=== PATIENT | female | born 1930 | race Caucasian/White ===

== ENCOUNTER 2016-10-19 14:04 | Inpatient (IN) | payer MEDICARE, BC ==
[~2016-10-19 14:04] MED LIST: AMARYL1 M1 PO; AMARYL1 MG PO; ASPIR 8181 MG PO; ASPIRIN EC81 MG PO; ASPIRIN81 MG; ATENOLOL50 MG; BISACODYL10 MG RC; CO Q-1030 MG; COMBIVENT RESPIM4 G1 INH; CRESTOR10 MG; CRESTOR20 MG; CRESTOR40 MG PO; CRESTOR40 MG/TAB PO; DEEP SEA45 M1; DIFLUCAN200 MG; EFFEXOR XR150 M1 PO; EFFEXOR XR150 MG; ELIQUIS2.5 M1 PO; FEROSUL325 M1 PO; FERROUS SU325 ( 65 ); FERROUS SULFAT134 M1; FUROSEMIDE20 MG PO; FUROSEMIDE40 M1 PO; FUROSEMIDE40 MG; GABAPENTIN300 M1 PO; GLIMEPIRIDE1 MG PO; GLUCOPHAGE500 MG; GUAIFENESIN ER600 MG PO; HUMALOG100 U/ML SC; IRON325 M1 PO; ISOSORBIDE MONO30 M4 PO; K-DUR10 ME1 PO; K-TAB ER20 ME1 PO; LASIX20 M1 PO; LASIX40 M1 PO; LASIX40 MG; LASIX80 M1 PO; LEVAQUIN500 M1 PO; LEVAQUIN750 M1 PO; LISINOPRIL10 MG; LOSARTAN POTASS50 MG PO; MAGIC MOUTHWASH; MAPAP325 MG PO; MILK OF MAGNESIA PO; MUCINEX1200 MG PO; NAPROSYN250 MG PO; NEURONTIN300 MG PO; NITROFURANTOIN50 MG; NITROQUICK0.4 MG; NORCO 5/3251 TAB PO; NORVASC5 M2 PO; PAIN RELIEVER325 M2 PO; POTASSIUM CHLO10 ME2 PO; POTASSIUM CHLO20 MEQ; PRAVACHOL40 M1 PO; PREDNISONE10 M1 PO; PREDNISONE10 M2 PO; PREVACID30 M1 PO; PREVACID30 M2 PO; PRILOSEC20 MG; PRILOSEC40 MG; TOPROL XL100 M1 PO; TOPROL XL100 MG PO; VENLAFAXINE HC150 MG PO; VENTOLIN HFA18 GM INH; VITAMIN D-1000 UNIT1 PO; VITAMIN D35000 UNI2 PO; albuterol mdi
[2016-10-19] MEDS ORDERED: LIPITOR40 M1 PO (14:24)
[2016-10-19] MEDS ORDERED: DEMADEX20 M1 PO (14:25)
[2016-10-19 15:02] LABS: BASO % 0.5 % (0-2); EOSINOPHIL ABSOLUTE COUNT 0.2 tho/cmm (0.0-0.7); HCT-HEMATOCRIT 33.4 % (34.0-49.0); HGB-HEMOGLOBIN 10.4 gm/dl (12.0-15.5); IMMATURE GRANULOCYTES ABSOLUTE 0.02 tho/cmm (0-0.03); IMMATURE GRANULOCYTES PERCENT 0.3 % (0-0.3); LYMPH % 12.5 % (20-45); LYMPH ABSOLUTE COUNT 0.8 tho/cmm (0.8-4.5); MCH (MEAN CORPUSCULAR HGB) 30.2 pg (28.0-32.0); MCHC MEAN CORPUSCULAR HGB CONC 31.1 % (32.0-36.0); MCV (MEAN CELL VOLUME) 97.1 fl (82.0-96.0); MEAN PLATELET VOLUME 9.7 cmc (9.4-12.4); MONO % 5.3 % (0-12); MONOCYTE ABSOLUTE COUNT 0.3 tho/cmm (0.0-1.2); NEUTROPHIL ABSOLUTE COUNT 4.7 tho/cmm (1.6-8.0); NEUTROPHIL-AUTOMATED 4.7 tho/cmm (1.6-8.0); NEUTROPHILS % 78.4 % (40-80); PLATELET COUNT 184 tho/cmm (150-450); RED BLOOD COUNT 3.44 mil/cmm (4.00-5.20); RED CELL DISTRIBUTION WIDTH 15.6 % (12.4-16.4)
[2016-10-19] MEDS ORDERED: AMARYL1 M1 PO (15:02)
[2016-10-19 15:18] LABS: ANION GAP 12 mmol/L (0-20); BLOOD UREA NITROGEN 69 mg/dl (6-24); CALCIUM 9.1 mg/dl (8.5-10.5); CARBON DIOXIDE-VENOUS 28 mmol/L (22-32); CHLORIDE 105 mmol/l (96-110); CREATININE 2.64 mg/dl (0.50-1.10); GLUCOSE 211 mg/dL (70-110); POTASSIUM 4.1 mmol/L (3.7-5.1); SODIUM 141 mmol/L (135-145); eGFR VALUE FOR BLACK 19 mL/Min
[2016-10-19 19:23] LABS: ALB/GLOB RATIO 0.8 (0.8-2.0); ALBUMIN 3.3 g/dl (3.5-5.0); ALKALINE PHOSPHATASE 157 U/L (33-138); ALT/SGPT 44 U/L (12-78); ANION GAP 14 mmol/L (0-20); AST/SGOT 35 U/L (10-40); BILIRUBIN,TOTAL 0.6 mg/dl (0-1.5); BLOOD UREA NITROGEN 67 mg/dl (6-24); CALCIUM 8.9 mg/dl (8.5-10.5); CARBON DIOXIDE-VENOUS 26 mmol/L (22-32); CHLORIDE 104 mmol/l (96-110); CREATININE 2.65 mg/dl (0.50-1.10); GLUCOSE 212 mg/dL (70-110); MAGNESIUM 2.5 mg/dl (1.3-2.6); SODIUM 140 mmol/L (135-145); eGFR VALUE FOR BLACK 18 mL/Min
[2016-10-20 05:43] LABS: ANION GAP 11 mmol/L (0-20); BLOOD UREA NITROGEN 68 mg/dl (6-24); CARBON DIOXIDE-VENOUS 30 mmol/L (22-32); CHLORIDE 107 mmol/l (96-110); GLUCOSE 166 mg/dL (70-110); POTASSIUM 3.9 mmol/L (3.7-5.1); SODIUM 144 mmol/L (135-145); eGFR VALUE FOR BLACK 19 mL/Min
[2016-10-21 04:24] LABS: ANION GAP 10 mmol/L (0-20); BLOOD UREA NITROGEN 63 mg/dl (6-24); CALCIUM 8.7 mg/dl (8.5-10.5); CARBON DIOXIDE-VENOUS 32 mmol/L (22-32); CHLORIDE 106 mmol/l (96-110); CREATININE 2.27 mg/dl (0.50-1.10); GLUCOSE 128 mg/dL (70-110); POTASSIUM 3.8 mmol/L (3.7-5.1); SODIUM 144 mmol/L (135-145); eGFR VALUE FOR BLACK 22 mL/Min
[2016-10-21 17:08] LABS: PROCALCITONIN 0.14 ng/ml (0.05-0.09)
[2016-10-22 05:38] LABS: BLOOD UREA NITROGEN 66 mg/dl (6-24); CALCIUM 8.9 mg/dl (8.5-10.5); CARBON DIOXIDE-VENOUS 28 mmol/L (22-32); CHLORIDE 99 mmol/l (96-110); CREATININE 2.56 mg/dl (0.50-1.10); SODIUM 138 mmol/L (135-145); eGFR VALUE FOR BLACK 19 mL/Min
[2016-10-22 05:41] LABS: ANION GAP 16 mmol/L (0-20); GLUCOSE 367 mg/dL (70-110); POTASSIUM 4.7 mmol/L (3.7-5.1)
[2016-10-23 06:11] LABS: BLOOD UREA NITROGEN 86 mg/dl (6-24); CARBON DIOXIDE-VENOUS 30 mmol/L (22-32); CHLORIDE 98 mmol/l (96-110); GLUCOSE 379 mg/dL (70-110); SODIUM 136 mmol/L (135-145); eGFR VALUE FOR BLACK 14 mL/Min
[2016-10-23 06:15] LABS: ANION GAP 14 mmol/L (0-20); CREATININE 3.24 mg/dl (0.50-1.10); POTASSIUM 5.6 mmol/L (3.7-5.1)
[2016-10-24 06:55] LABS: BLOOD UREA NITROGEN 100 mg/dl (6-24); CARBON DIOXIDE-VENOUS 29 mmol/L (22-32); CREATININE 3.06 mg/dl (0.50-1.10); GLUCOSE 362 mg/dL (70-110); eGFR VALUE FOR BLACK 15 mL/Min
[2016-10-24 07:10] LABS: ANION GAP 14 mmol/L (0-20); CHLORIDE 98 mmol/l (96-110); SODIUM 135 mmol/L (135-145)
[2016-10-24 13:56] LABS: PHOSPHOROUS 3.4 mg/dl (2.5-4.9)
[2016-10-24 13:57] LABS: MAGNESIUM 2.4 mg/dl (1.3-2.6)
[2016-10-24 17:01] LABS: KETONE-BETA (WHOLE BLOOD) <0.1 mmol/L (0.0-0.6)
[2016-10-24 17:17] LABS: BLOOD UREA NITROGEN 102 mg/dl (6-24); CALCIUM 9.3 mg/dl (8.5-10.5); CARBON DIOXIDE-VENOUS 28 mmol/L (22-32); CHLORIDE 101 mmol/l (96-110); CREATININE 3.03 mg/dl (0.50-1.10); SODIUM 139 mmol/L (135-145); eGFR VALUE FOR BLACK 16 mL/Min
[2016-10-24 17:20] LABS: ANION GAP 14 mmol/L (0-20); GLUCOSE 176 mg/dL (70-110); POTASSIUM 4.3 mmol/L (3.7-5.1)
[2016-10-24 20:58] LABS: ANION GAP 12 mmol/L (0-20); BLOOD UREA NITROGEN 100 mg/dl (6-24); CARBON DIOXIDE-VENOUS 30 mmol/L (22-32); CHLORIDE 101 mmol/l (96-110); CREATININE 2.94 mg/dl (0.50-1.10); GLUCOSE 125 mg/dL (70-110); POTASSIUM 4.3 mmol/L (3.7-5.1); SODIUM 139 mmol/L (135-145); eGFR VALUE FOR BLACK 16 mL/Min
[2016-10-24 23:40] LABS: URINE BILIRUBIN NEGATIVE (NEG); URINE BLOOD NEGATIVE (NEG); URINE GLUCOSE (UA) NEGATIVE (NEG); URINE KETONE NEGATIVE (NEG); URINE LEUKOCYTE ESTERASE NEGATIVE (NEG); URINE NITRITE NEGATIVE (NEG); URINE PROTEIN SMALL (NEG)
[2016-10-24 23:54] LABS: URINE APPEARANCE CLEAR; URINE COLOR YELLOW
[2016-10-24 23:55] LABS: URINE EPITHELIAL CELLS 0-6 /[HPF] (0-10); URINE RBC 0-1 /[HPF] (0-5)
[2016-10-25 01:15] LABS: ANION GAP 11 mmol/L (0-20); BLOOD UREA NITROGEN 101 mg/dl (6-24); CARBON DIOXIDE-VENOUS 32 mmol/L (22-32); CHLORIDE 101 mmol/l (96-110); CREATININE 2.86 mg/dl (0.50-1.10); SODIUM 140 mmol/L (135-145); eGFR VALUE FOR BLACK 17 mL/Min
[2016-10-25 01:16] LABS: GLUCOSE 68 mg/dL (70-110)
[2016-10-25 01:22] LABS: MAGNESIUM 2.3 mg/dl (1.3-2.6); PHOSPHOROUS 4.2 mg/dl (2.5-4.9)
[2016-10-25 04:30] LABS: BASO % 0.1 % (0-2); HCT-HEMATOCRIT 31.6 % (34.0-49.0); HGB-HEMOGLOBIN 9.8 gm/dl (12.0-15.5); IMMATURE GRANULOCYTES ABSOLUTE 0.08 tho/cmm (0-0.03); IMMATURE GRANULOCYTES PERCENT 0.8 % (0-0.3); LYMPH ABSOLUTE COUNT 1.1 tho/cmm (0.8-4.5); MCH (MEAN CORPUSCULAR HGB) 30.1 pg (28.0-32.0); MCV (MEAN CELL VOLUME) 96.9 fl (82.0-96.0); MEAN PLATELET VOLUME 9.9 cmc (9.4-12.4); MONO % 8.5 % (0-12); MONOCYTE ABSOLUTE COUNT 0.8 tho/cmm (0.0-1.2); NEUTROPHIL ABSOLUTE COUNT 7.7 tho/cmm (1.6-8.0); NEUTROPHIL-AUTOMATED 7.7 tho/cmm (1.6-8.0); NEUTROPHILS % 79.6 % (40-80); PLATELET COUNT 222 tho/cmm (150-450); RED BLOOD COUNT 3.26 mil/cmm (4.00-5.20); RED CELL DISTRIBUTION WIDTH 16.6 % (12.4-16.4); WHITE BLOOD COUNT 9.6 tho/cmm (4.0-10.0)
[2016-10-25 04:37] LABS: ALBUMIN 3.1 g/dl (3.5-5.0); ANION GAP 13 mmol/L (0-20); BLOOD UREA NITROGEN 100 mg/dl (6-24); CARBON DIOXIDE-VENOUS 32 mmol/L (22-32); CHLORIDE 100 mmol/l (96-110); CREATININE 2.91 mg/dl (0.50-1.10); PHOSPHOROUS 5.1 mg/dl (2.5-4.9); POTASSIUM 4.5 mmol/L (3.7-5.1); SODIUM 140 mmol/L (135-145); eGFR VALUE FOR BLACK 16 mL/Min
[2016-10-25 04:43] LABS: GLUCOSE 142 mg/dL (70-110)
[2016-10-26 06:18] LABS: BASO % 0.1 % (0-2); EOS % 1.3 % (0-7); EOSINOPHIL ABSOLUTE COUNT 0.1 tho/cmm (0.0-0.7); HCT-HEMATOCRIT 32.1 % (34.0-49.0); HGB-HEMOGLOBIN 9.9 gm/dl (12.0-15.5); IMMATURE GRANULOCYTES PERCENT 1.3 % (0-0.3); LYMPH % 15.9 % (20-45); LYMPH ABSOLUTE COUNT 1.2 tho/cmm (0.8-4.5); MCH (MEAN CORPUSCULAR HGB) 30.1 pg (28.0-32.0); MCHC MEAN CORPUSCULAR HGB CONC 30.8 % (32.0-36.0); MCV (MEAN CELL VOLUME) 97.6 fl (82.0-96.0); MEAN PLATELET VOLUME 10.1 cmc (9.4-12.4); MONO % 8.2 % (0-12); MONOCYTE ABSOLUTE COUNT 0.6 tho/cmm (0.0-1.2); NEUTROPHIL ABSOLUTE COUNT 5.7 tho/cmm (1.6-8.0); NEUTROPHIL-AUTOMATED 5.7 tho/cmm (1.6-8.0); NEUTROPHILS % 73.2 % (40-80); PLATELET COUNT 204 tho/cmm (150-450); RED BLOOD COUNT 3.29 mil/cmm (4.00-5.20); RED CELL DISTRIBUTION WIDTH 16.3 % (12.4-16.4); WHITE BLOOD COUNT 7.8 tho/cmm (4.0-10.0)
[2016-10-26 06:23] LABS: ALBUMIN 3.1 g/dl (3.5-5.0); ANION GAP 10 mmol/L (0-20); BLOOD UREA NITROGEN 81 mg/dl (6-24); CALCIUM 8.7 mg/dl (8.5-10.5); CARBON DIOXIDE-VENOUS 33 mmol/L (22-32); CHLORIDE 101 mmol/l (96-110); CREATININE 2.38 mg/dl (0.50-1.10); GLUCOSE 136 mg/dL (70-110); PHOSPHOROUS 4.8 mg/dl (2.5-4.9); POTASSIUM 4.1 mmol/L (3.7-5.1); SODIUM 140 mmol/L (135-145); eGFR VALUE FOR BLACK 21 mL/Min
[2016-10-27 07:35] LABS: HCT-HEMATOCRIT 34.9 % (34.0-49.0); HGB-HEMOGLOBIN 10.4 gm/dl (12.0-15.5); MCV (MEAN CELL VOLUME) 100.3 fl (82.0-96.0); RED CELL DISTRIBUTION WIDTH 16.3 % (12.4-16.4)
[2016-10-27 07:49] LABS: ANION GAP 9 mmol/L (0-20); BLOOD UREA NITROGEN 75 mg/dl (6-24); CALCIUM 9.1 mg/dl (8.5-10.5); CARBON DIOXIDE-VENOUS 32 mmol/L (22-32); CHLORIDE 105 mmol/l (96-110); CREATININE 2.33 mg/dl (0.50-1.10); GLUCOSE 117 mg/dL (70-110); SODIUM 142 mmol/L (135-145); eGFR VALUE FOR BLACK 22 mL/Min
[2016-10-28 03:53] LABS: HCT-HEMATOCRIT 35.1 % (34.0-49.0); HGB-HEMOGLOBIN 10.6 gm/dl (12.0-15.5); MCV (MEAN CELL VOLUME) 99.4 fl (82.0-96.0); RED CELL DISTRIBUTION WIDTH 16.2 % (12.4-16.4)
[2016-10-28 03:59] LABS: ANION GAP 10 mmol/L (0-20); BLOOD UREA NITROGEN 76 mg/dl (6-24); CARBON DIOXIDE-VENOUS 31 mmol/L (22-32); CHLORIDE 104 mmol/l (96-110); CREATININE 2.56 mg/dl (0.50-1.10); GLUCOSE 166 mg/dL (70-110); POTASSIUM 4.1 mmol/L (3.7-5.1); SODIUM 141 mmol/L (135-145); eGFR VALUE FOR BLACK 19 mL/Min
[2016-10-28] MEDS ORDERED: NITROSTAT0.4 MG/TAB SL (14:39)
[2016-10-28] MEDS ORDERED: DEMADEX20 M1 PO (14:44)
[2016-10-28] MEDS ORDERED: AMILORIDE HCL5 M1 PO (14:45)
[2016-10-28] MEDS ORDERED: PROTONIX40 M2 PO (14:46)
[2016-10-28] MEDS ORDERED: PREDNISONE10 M1 PO (14:49)
[2017-05-01] MEDS ORDERED: BASAGLAR K100 UNIT/1 SC (11:30)
[2017-05-01] MEDS ORDERED: LIPITOR80 M1 PO (11:30)
[2017-05-01] MEDS ORDERED: OMEPRAZOLE40 M2 PO (11:31)
[2017-05-01] MEDS ORDERED: ULTRAM50 M1 PO (11:32)
[2017-05-01] MEDS ORDERED: LASIX40 M1 PO (11:32)
[2017-05-01] MEDS ORDERED: TOPROL XL100 M1 PO (11:34)
[2017-05-01] MEDS ORDERED: COMBIVENT RESPIM4 G1 INH (11:35)
[2017-05-01] MEDS ORDERED: EFFEXOR XR75 M1 PO (12:00)
[2017-05-01] MEDS ORDERED: TYLENOL325 M2 PO (12:02)
[2017-05-01] MEDS ORDERED: SALINE NASAL SP30 M1 (12:04)
[2017-05-01] MEDS ORDERED: MUCINEX D ER 11 EACH PO (12:04)
[2017-05-01] MEDS ORDERED: NORCO 5-325 TA1 EACH PO (13:24)
== END 2016-10-28 16:24 | disposition home health service (06) | DRG 291 ==
LOC: EDMED 14:04 → EMR2 17:49 → PCUB 18:00
PROVIDERS: Emergency Medicine; Internal Medicine; Internal Medicine Cardiovascular Disease; Nurse Practitioner; Physician Assistant; ADMIT Internal Medicine
PROC: 5A09357 Assistance with Respiratory Ventilation, Less than 24 Consecutive Hours, Continuous Positive Airway Pressure (ICD-10-PCS; principal; 2016-10-19)
DX: I13.0 Hypertensive heart and chronic kidney disease with heart failure and stage 1 through stage 4 chronic kidney disease, or unspecified chronic kidney disease (principal); I50.33 Acute on chronic diastolic (congestive) heart failure; J96.21 Acute and chronic respiratory failure with hypoxia; J90 Pleural effusion, not elsewhere classified; N18.4 Chronic kidney disease, stage 4 (severe); N17.9 Acute kidney failure, unspecified; D62 Acute posthemorrhagic anemia; N39.0 Urinary tract infection, site not specified; Z68.41 Body mass index [BMI] 40.0-44.9, adult; E11.22 Type 2 diabetes mellitus with diabetic chronic kidney disease; Z51.5 Encounter for palliative care; E66.9 Obesity, unspecified; E78.5 Hyperlipidemia, unspecified; I48.0 Paroxysmal atrial fibrillation; I25.10 Atherosclerotic heart disease of native coronary artery without angina pectoris; Z79.01 Long term (current) use of anticoagulants; I73.9 Peripheral vascular disease, unspecified; G47.33 Obstructive sleep apnea (adult) (pediatric); Z86.73 Personal history of transient ischemic attack (TIA), and cerebral infarction without residual deficits; E11.65 Type 2 diabetes mellitus with hyperglycemia; E87.5 Hyperkalemia; B96.20 Unspecified Escherichia coli [E. coli] as the cause of diseases classified elsewhere
CPT/HCPCS: G0378; G8978-GP-CI; G8979-GP-CI; G8987-GO-CI; G8988-GO-CH; G8989-GO-CI; J0610; J1120; J1815; J1940; J2930; J7030; J7512

== ENCOUNTER 2016-12-12 17:43 | Observation (INO) | payer MEDICARE, BC ==
[~2016-12-12 17:43] MED LIST changes: +AMILORIDE HCL5 M1 PO; +DEMADEX20 M1 PO; +LIPITOR40 M1 PO; +NITROSTAT0.4 MG/TAB SL; +PROTONIX40 M2 PO
[2016-12-12] MEDS ORDERED: AMIODARONE HCL200 M1 PO (19:09)
[2016-12-12] MEDS ORDERED: DEMADEX20 M1 PO (19:12)
[2016-12-12 22:33] LABS: BASO % 0.5 % (0-2); EOS % 5.2 % (0-7); EOSINOPHIL ABSOLUTE COUNT 0.3 tho/cmm (0.0-0.7); HGB-HEMOGLOBIN 9.7 gm/dl (12.0-15.5); IMMATURE GRANULOCYTES ABSOLUTE 0.02 tho/cmm (0-0.03); IMMATURE GRANULOCYTES PERCENT 0.3 % (0-0.3); LYMPH % 18.4 % (20-45); LYMPH ABSOLUTE COUNT 1.1 tho/cmm (0.8-4.5); MCH (MEAN CORPUSCULAR HGB) 29.8 pg (28.0-32.0); MCHC MEAN CORPUSCULAR HGB CONC 30.3 % (32.0-36.0); MCV (MEAN CELL VOLUME) 98.2 fl (82.0-96.0); MEAN PLATELET VOLUME 9.4 cmc (9.4-12.4); MONOCYTE ABSOLUTE COUNT 0.5 tho/cmm (0.0-1.2); NEUTROPHIL ABSOLUTE COUNT 3.8 tho/cmm (1.6-8.0); NEUTROPHIL-AUTOMATED 3.8 tho/cmm (1.6-8.0); NEUTROPHILS % 66.6 % (40-80); PLATELET COUNT 232 tho/cmm (150-450); RED BLOOD COUNT 3.26 mil/cmm (4.00-5.20); RED CELL DISTRIBUTION WIDTH 15.6 % (12.4-16.4); WHITE BLOOD COUNT 5.8 tho/cmm (4.0-10.0)
[2016-12-12 22:50] LABS: ALB/GLOB RATIO 0.8 (0.8-2.0); ALKALINE PHOSPHATASE 96 U/L (33-138); ALT/SGPT 19 U/L (12-78); ANION GAP 13 mmol/L (0-20); AST/SGOT 18 U/L (10-40); BILIRUBIN,TOTAL 0.4 mg/dl (0-1.5); BLOOD UREA NITROGEN 54 mg/dl (6-24); CALCIUM 8.7 mg/dl (8.5-10.5); CARBON DIOXIDE-VENOUS 33 mmol/L (22-32); CHLORIDE 100 mmol/l (96-110); CREATININE 3.02 mg/dl (0.50-1.10); GLUCOSE 150 mg/dL (70-110); SODIUM 142 mmol/L (135-145); eGFR VALUE FOR BLACK 16 mL/Min
[2016-12-12 23:01] LABS: POTASSIUM 3.7 mmol/L (3.7-5.1)
[2016-12-14] MEDS ORDERED: TOPROL XL50 M1 PO (17:10)
[2017-05-01] MEDS ORDERED: BASAGLAR K100 UNIT/1 SC (11:30)
[2017-05-01] MEDS ORDERED: LIPITOR80 M1 PO (11:30)
[2017-05-01] MEDS ORDERED: OMEPRAZOLE40 M2 PO (11:31)
[2017-05-01] MEDS ORDERED: ULTRAM50 M1 PO (11:32)
[2017-05-01] MEDS ORDERED: LASIX40 M1 PO (11:32)
[2017-05-01] MEDS ORDERED: TOPROL XL100 M1 PO (11:34)
[2017-05-01] MEDS ORDERED: COMBIVENT RESPIM4 G1 INH (11:35)
[2017-05-01] MEDS ORDERED: EFFEXOR XR75 M1 PO (12:00)
[2017-05-01] MEDS ORDERED: TYLENOL325 M2 PO (12:02)
[2017-05-01] MEDS ORDERED: SALINE NASAL SP30 M1 (12:04)
[2017-05-01] MEDS ORDERED: MUCINEX D ER 11 EACH PO (12:04)
[2017-05-01] MEDS ORDERED: NORCO 5-325 TA1 EACH PO (13:24)
== END 2016-12-14 20:00 | disposition home health service (06) ==
LOC: PCUB 17:43
PROVIDERS: Internal Medicine; ADMIT Internal Medicine
DX: R42 Dizziness and giddiness (principal); R53.1 Weakness; I13.0 Hypertensive heart and chronic kidney disease with heart failure and stage 1 through stage 4 chronic kidney disease, or unspecified chronic kidney disease; E11.22 Type 2 diabetes mellitus with diabetic chronic kidney disease; N18.4 Chronic kidney disease, stage 4 (severe); I50.32 Chronic diastolic (congestive) heart failure; Z66 Do not resuscitate; I48.0 Paroxysmal atrial fibrillation; I25.10 Atherosclerotic heart disease of native coronary artery without angina pectoris; E78.5 Hyperlipidemia, unspecified; J44.9 Chronic obstructive pulmonary disease, unspecified; R29.6 Repeated falls; R26.9 Unspecified abnormalities of gait and mobility; G47.33 Obstructive sleep apnea (adult) (pediatric); I05.2 Rheumatic mitral stenosis with insufficiency; I73.9 Peripheral vascular disease, unspecified; R53.83 Other fatigue; R06.00 Dyspnea, unspecified; R00.1 Bradycardia, unspecified; D64.9 Anemia, unspecified; Z51.5 Encounter for palliative care; Z79.01 Long term (current) use of anticoagulants; Z79.82 Long term (current) use of aspirin; Z79.84 Long term (current) use of oral hypoglycemic drugs; Z79.899 Other long term (current) drug therapy; Z86.73 Personal history of transient ischemic attack (TIA), and cerebral infarction without residual deficits; Z87.891 Personal history of nicotine dependence; Z90.710 Acquired absence of both cervix and uterus; Z95.1 Presence of aortocoronary bypass graft; Z98.890 Other specified postprocedural states
CPT/HCPCS: G0378; G0379; G8978-GP-CJ; G8979-GP-CJ; G8980-GP-CJ; G8980-GP-CK; G8987-GO-CJ; G8988-GO-CI; G8989-GO-CJ; J1815